=== PATIENT | male | born 1990 | race Caucasian/White ===

== ENCOUNTER → 2017-12-24 07:25 | Outpatient (CLI) | payer MEDICAID, SELFPAY ==
[2017-12-24 08:26] LABS: ALT 111 U/L (12-78); AST 45 U/L (15-37); Albumin 4.1 g/dL (3.4-5.0); Alkaline Phosphatase 70 U/L (46-116); BUN 18 mg/dL (7-18); Bilirubin, Total 0.5 mg/dL (0.2-1.0); CREATININE 0.85 mg/dL (0.70-1.30); Calcium 8.8 mg/dL (8.5-10.1); Chloride 104 mmol/L (98-107); Cholesterol 234 mg/dL (50-200); Glucose 97 mg/dL (70-100); HDL Cholesterol 44 mg/dL (40-60); LDL CHOLESTEROL 172 mg/dL (<100); Potassium 4.4 mmol/L (3.5-5.1); Sodium 139 mmol/L (136-145); Total Protein 7.2 g/dL (6.4-8.2); Triglyceride 126 mg/dL (30-150)
== END ==
PROVIDERS: PCP Nurse Practitioner Family; Visit Provider Nurse Practitioner Family
DX: I10 Essential (primary) hypertension (principal); E78.5 Hyperlipidemia, unspecified
CPT/HCPCS: 36415; 80053; 80061; 83721

== ENCOUNTER 2018-07-09 12:22 | Outpatient (CLI) | payer MEDICAID, SELFPAY ==
--- NOTE | 2018-07-09 11:39 | DI.RAD_ITS ---
SYMPTOM/DIAGNOSIS: PRODUCTIVE COUGH, FEVER, URI, J39.9 PA AND LATERAL CHEST: Comparison is made with 12/22/14. The cardiac and mediastinal contours have a normal appearance. The lungs are well inflated and clear. No infiltrate or effusion is seen. IMPRESSION: Negative chest xray.
== END 2018-07-09 12:42 ==
PROVIDERS: PCP Nurse Practitioner Family; Visit Provider Family Medicine
DX: R05 Cough (principal); R50.9 Fever, unspecified; J39.9 Disease of upper respiratory tract, unspecified
CPT/HCPCS: 71046

== ENCOUNTER 2018-09-08 21:45 | Observation (INO) | payer MEDICAID, SELFPAY ==
[2018-09-08 21:55] VITALS: BP 153/86; PULSE 89; RESP 16; TEMP 37; O2SAT 97
[2018-09-08 22:43] LABS: Abs Immature Grans 0.03 k/cumm (0.0-0.09); Absolute Basophil Count 0.02 k/cumm (0.0-0.2); Absolute Eosinophil Count 0.21 k/cumm (0.0-0.7); Absolute Lymphocyte Count 2.39 k/cumm (1.2-3.4); Absolute Monocyte Count 0.43 k/cumm (0.11-0.7); Absolute Neutrophil Count 2.94 k/cumm (1.2-6.7); Basophils % 0.3; Eosinophils % 3.5; HCT 41.6 % (40.0-50.0); HGB 14.4 g/dL (13.5-17.5); Immature Grans % 0.5; Lymphocytes % 39.7; Mean Corp. HGB Concentration 34.6 g/dL (32.0-36.0); Mean Corpuscular Hemoglobin 30.6 pg (27.0-33.0); Mean Corpuscular Volume 88.5 fL (80-95); Mean Platelet Volume 10.8 fL (8.0-11.0); Monocytes % 7.1; Neutrophils % 48.9; Platelet Count 171 x1000/uL (130-400); RBC Distribution Width 12.9 % (11.8-14.1); White Blood Cell Count 6.02 k/cumm (4.4-10.8)
[2018-09-08 22:43] LABS: Bilirubin Negative (Negative); Blood Negative (Negative); Clarity Clear; Glucose Negative (Negative); Ketones Negative (Negative); Leukocyte Esterase Negative (Negative); Nitrite Negative (Negative); Urobilinogen 0.2 EU/dL (Up TO 0.2); pH 6.5 (5-8)
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
[2018-09-08] MEDS: Lactated Ringers 1,000 ML 200 ML IV (22:50)
[2018-09-08] MEDS: Omnipaque 350 MG/ML 100 ML BTL IJ (23:00)
[2018-09-08 23:02] LABS: ALT 144 U/L (12-78); AST 54 U/L (15-37); Albumin 3.9 g/dL (3.4-5.0); Alkaline Phosphatase 66 U/L (46-116); BUN 16 mg/dL (7-18); Bilirubin, Total 0.2 mg/dL (0.2-1.0); CREATININE 0.91 mg/dL (0.70-1.30); Calcium 8.8 mg/dL (8.5-10.1); Chloride 102 mmol/L (98-107); ETHANOL BLOOD 49.6 mg/dL (<3); Glucose 134 mg/dL (70-100); Potassium 3.7 mmol/L (3.5-5.1); Sodium 137 mmol/L (136-145); Total Protein 7.2 g/dL (6.4-8.2)
--- NOTE | 2018-09-08 23:04 | DI.CT_ITS ---
SYMPTOM/DIAGNOSIS: RLQ PAIN, TENDERNESS ABDOMEN AND PELVIC CT: CT examination of the abdomen and pelvis was performed with a bolus infusion of 100 cc's of Omnipaque 350. Images obtained through the lung bases are unremarkable. Note is made of hepatic steatosis. The pancreas appears normal. Gallbladder and bile ducts are normal. Adrenals and kidneys are normal. No evidence of urinary tract calcification or obstruction. No significant abdominal wall hernia is seen. No abdominal or pelvic adenopathy. The appendix is normal. No evidence of diverticulitis or bowel obstruction. CONCLUSION: No evidence of acute intra-abdominal process. Note is made of hepatic steatosis.
[2018-09-08] MEDS: MORPHine 10 MG/ML VIAL 4 MG IVP (23:15)
--- NOTE | 2018-09-08 23:17 | DI.VRAD_ITS ---
EXAM: CT Abdomen and Pelvis With Contrast EXAM DATE/TIME: 09/08/2018 10:46 PM CLINICAL HISTORY: 28 years old, male; Abdominal pain; Localized; Right lower quadrant (rlq) TECHNIQUE: Imaging protocol: Axial computed tomography images of the abdomen and pelvis with intravenous contrast. Coronal and sagittal reformatted images were created and reviewed. Radiation optimization: All CT scans at this facility use at least one of these dose optimization techniques: automated exposure control; mA and/or kV adjustment per patient size (includes targeted exams where dose is matched to clinical indication); or iterative reconstruction. Contrast material: [id number]; Contrast volume: 100 ml; Contrast route: IV; COMPARISON: No relevant prior studies available. FINDINGS: ABDOMEN: Liver: No suspicious lesions. Gallbladder and bile ducts: No acute or concerning findings. Pancreas: Unremarkable. No ductal dilation. Spleen: No suspicious lesions. Adrenals: Unremarkalbe. No suspicious mass. Kidneys and ureters: Unremarkable. No hydro. No suspicious lesions. Stomach and bowel: Unremarkable. No obstruction or inflammatory changes. Appendix: Normal appendix. PELVIS: Bladder: Unremarkable as visualized. Reproductive: Unremarkable as visualized. ABDOMEN and PELVIS: Intraperitoneal space: No free air. No significant fluid collection. Bones/joints: No acute fracture. No dislocation. Soft tissues: Unremarkable. Vasculature: Unremarkable. No acute findings Lymph nodes: Unremarkable. IMPRESSION: No acute findings. Dictated and Authenticated by: Greg Andrade MD. Ordering:DONN Khan MD
[2018-09-08 23:30] VITALS: BP 143/87; PULSE 100; RESP 18; TEMP 37.4; O2SAT 96
[2018-09-09] VITALS (17 sets, daily range): BP systolic 123–170; BP diastolic 51–105; PULSE 73–96; RESP 8–22; TEMP 36.5–37.4; O2SAT 95–98
[2018-09-09] MEDS: MORPHine 2 MG/ML SYR 4 MG IVP (01:51)
[2018-09-09] MEDS: Normal Saline Flush 10 ML SYR IVP (01:52)
[2018-09-09] MEDS: Lactated Ringers 1,000 ML 200 ML IV ×2 (03:57→08:35)
[2018-09-09 07:17] LABS: Abs Immature Grans 0.02 k/cumm (0.0-0.09); Absolute Basophil Count 0.04 k/cumm (0.0-0.2); Absolute Eosinophil Count 0.19 k/cumm (0.0-0.7); Absolute Lymphocyte Count 2.06 k/cumm (1.2-3.4); Absolute Monocyte Count 0.46 k/cumm (0.11-0.7); Absolute Neutrophil Count 2.85 k/cumm (1.2-6.7); Basophils % 0.7; Eosinophils % 3.4; HCT 42.3 % (40.0-50.0); HGB 14.1 g/dL (13.5-17.5); Immature Grans % 0.4; Lymphocytes % 36.7; Mean Corp. HGB Concentration 33.3 g/dL (32.0-36.0); Mean Corpuscular Hemoglobin 29.7 pg (27.0-33.0); Mean Corpuscular Volume 89.2 fL (80-95); Monocytes % 8.2; Neutrophils % 50.6; Platelet Count 159 x1000/uL (130-400); RBC 4.74 m/cumm (4.50-6.00); White Blood Cell Count 5.62 k/cumm (4.4-10.8)
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
[2018-09-09] MEDS: ACETAMINOPHEN 1,000 MG/100 ML BTL 400 MG IVPB (10:14)
[2018-09-09] MEDS: cefTRIAXone 2 GM/50 ML BAG IVPB (10:47)
[2018-09-09] MEDS: Bupivacaine 0.25% Pres-Free 30 ML VIAL (11:27)
--- NOTE | 2018-09-09 11:57 | APP_PTH ---
PATIENT: Conrado Corrigan II LOC: U#:[id number] AGE/SX: 28/M ROOM: RE09/09/[address]: Porsha Titsu : 1990 BED: A DIS: 09/10/2018 SPEC #: [id number] RECD: 09/09/18 12:54 STATUS: SOUKarla REQ #: [id number] HELEN: 09/09/18 11:[address]: Porsha Titus DEPT: Surgical Specimen RECD BY: Chrystal Sun ENTERED: 09/09/18 12:54 SP TYPE: Appendix OTHR DR: Kimberly Stein APRN Tissues: 1 - APPENDIX NOT INCIDENTAL Procedures: GROSS AND MICRO LEVEL 3 Comments: [id number]
--- NOTE | 2018-09-09 12:35 | W.PM.OP ---
Date of service: 09/09/18 Time of Service: 12:35 Operative Note DATE OF PROCEDURE: 09/09/18 PRE-OP DIAGNOSIS: RLQ pain POST-OP DIAGNOSIS: other (early appendicitis) PROCEDURE: abril bales SURGEON: Porsha Titus ELECTRIC ARC FURNACE OPERATOR: Porsha Arroyo ANESTHESIA: GETA ESTIMATED BLOOD LOSS: 5 PATHOLOGY: other COMPLICATIONS: None Indications: RLQ pain Procedure Description: ANESTHESIA: General. ESTIMATED BLOOD LOSS: 10 mL. COMPLICATIONS: The patient tolerated the procedure well without complications. INDICATIONS: The patient has signs and symptoms compatible with acute appendicitis and is brought to the OR for laparoscopic appendectomy, possible open procedure. Informed consent is obtained for the procedural (explained in simple layman's terms that the pt and/or family could understand) explaining risks vs benefits and alternatives to the procedure and consequences if we do not do the procedure. Risks include but are not limited to:bleeding,infections, pneumonia, blood clots/DVT/PE, anesthesia(aspiration, damage to teeth/airway/AL/CVA//prolonged mechanical ventilation/PTX/IV infections), damage to bowel, bladder,blood vessels, ureters. Damage to solid organs requiring removal. Infertility. Leakage from anastomosis requiring colostomy. Wound infections requirng further surgery. Scarring and disfigurement. Subsequent bowel obstructions from scar tissue. Possible open procedure if minimaly invsive procedure is being attempted. Abscess and stump appendicitis as well as others. DESCRIPTION OF PROCEDURE: The patient was brought to the operating room suite and placed in supine position. Anesthesia was administered per the Department of Anesthesia. A Gutierrez catheter and OG tube are placed. The patient was prepped and draped in the usual sterile fashion using ChloraPrep scrub solution. Pause for the cause was done. 30 mL of 1% buffered was used for local anesthetization. A stab incision was made in the umbilicus and the Veress was inserted. Drop test was positive and insufflation was begun. When 15 mm of pressure was noted on the monitor, the Veress was removed, a #5 port inserted. Camera inserted through the port shows no damage to underlying structures. GB appears nl. Bowel, liver and stomach that are visualized are normal in appearance. Pelvic organs are not visualized. The appendix is mildly inflamed at the tip. There is no signs of rupture. There is no purulent drainage in the pelvis. It is not adhered to any adjacent structures. A 12 mm port was then placed in the suprapubic position under direct visualization following creation of a local field block as well as a second 5 mm port in the LLQ. The appendix is elevated and a rent dissected into the mesentery. The base of the appendix is healthy and will hold robb. A Endo-QUINCY stapler is placed across the base of the appendix and fired and 2nd stapler placed across the mesentery and fired. The appendix is placed in a bag and brought out. There is no bleeding or enteric leakage from the staple lines. The pt does not require a drain. The abdomen was copiously irrigated with a liter of saline. All saline is evacuated. The scope and ports are removed. Pneumoperitoneum is evacuated. The fascia under the 12 mm port is closed with 0 Vicryl. There was no bleeding from the port sites as when they removed and the pneumoperitoneum evacuated. The wounds were copiously irrigated and closed in 2 layers with 4-0 Monocryl. Sterile tape and sterile dressings are applied. The patient tolerated the procedure without complication, transferred to the recovery room in stable condition. Family was apprised of patient condition. The patient can be discharged home later today.
[2018-09-09] MEDS: HYDROcodone 5/Acetaminophen 325 TAB PO (13:44)
--- NOTE | 2018-09-09 13:58 | NUR.NOTE ---
patient arrived from PACU via stretcher, stand pivot to bed, 2 iv accesses, c/o abd burning near incision site, cool pack applied, vitals are stable, family with him.
[2018-09-09] MEDS: metroNIDAZOLE 500 MG/100 ML BAG 100 MG IVPB (15:28)
[2018-09-09] MEDS: traMADol 50 MG TAB PO ×2 (16:45→21:42)
[2018-09-09] MEDS: Acetaminophen 500 MG TAB 1000 MG PO (16:45)
[2018-09-09] MEDS: Ketorolac 30 MG/ML VIAL IVP (18:25)
[2018-09-09] MEDS: Lisinopril 20 MG TAB 40 MG PO (19:47)
--- NOTE | 2018-09-09 21:13 | PGE_ITS ---
Date of Service Date of service: 09/09/18 Time of Service: 21:11 Assessment and Plan (1) Appendicitis: Current visit: Yes Status: Acute s/p lap appy doing well RN's don't think pt is going to be able to gome home tonight Plan d/c in am try protonix for GERD pt states he did stop smoking 5m ago. pain control- try to use non narcotics. pt seems to have unpleasent reactions to narcotic pain meds. c/o dizziness after received ultram. takes BP meds at night plan on dc home in am Subjective Interval history since last seen: Late entry from 15:30 Pt c/o some mild indigestion. Here does have a hx of severe GERD, but doesn't take any meds for this. He has some burning pain at the incision sites. Has not urinated since Sx. Had some cl liq and now feels mildly bloated. Pt has not been up walking. pt had a reaction to morphine- spasming of neck muscles and does not want any more of this. Pt can go home this evening if he is feeling good No headaches. no eye pain No CP or SOB. no productive cough. no leg pain or swelling. Will have pt medicated for pain. Will get him up adn moving and see how he feels. 18:30 d/w RN pt care. pt BP slitghtly up. pt had tylenol and ultram for pain. Now feels dizzy. Pt did not receive BP med yest. nl takes BP med at night pt would like reg food to eat- no n/v. RN doens't think he is ready for d/c. Plan d/c home in am Exam Const General: cooperative, comfortable and no acute distress Eyes Other: no eye pain or redness no dental abnormalities Resp Other: L: CTA b/l GI Other: dressing C/D/I. BS hypoactive Skin Other: intact Objective Objective Clinical Data: Abnormal lab results 09/08/18 Range/Units 22:15 Glucose 134 H (70-100) mg/dL AST 54 H (15-37) U/L ALT 144 H (12-78) U/L Vital Signs Temperature 36.9 C 09/09/18 20:00 Temperature Source Tympanic 09/09/18 17:30 Pulse 96 H 09/09/18 20:00 Pulse Rhythm Regular 05/16/19 20:00 Respiratory Rate 18 09/09/18 20:00 Respiratory Effort Non-Labored 09/09/18 20:00 Respiratory Depth Normal 09/09/18 20:00 Respiratory Pattern Normal 09/09/18 20:00 Blood Pressure 146/84 H 09/09/18 20:00 Pulse Oximetry 98 09/09/18 20:00 Respiratory End-tidal CO2 39 09/09/18 13:08 Oxygen Delivery Method Room Air 09/09/18 20:00 Oxygen Flow Rate 0 09/09/18 20:00 Pain Level 8 09/09/18 16:45 Comment 09/09/18 17:30 Intake & Output 09/08/18 09/09/18 09/09/18 23:59 11:59 23:59 Intake Total 2966. 950 / 2966.667 Output Total 275 / 275 Balance 2691. 675 / 269. Weight 113.398 kg 113.398 kg Intake: IV 272. 710 272.667 Oral 240 / 240 Output: Urine 275 / 275 Other: Urine Color Pale Yellow Urine Appearance Clear Clear Urine Odor None None Comment Pt voiding ad vamsi in toilet. Denies sx. Urine not seen by nursing at this time. Emesis Description None Voiding Methods Toilet Toilet Laboratory Results WBC 5.62 k/cumm (4.4-10.8) 09/09/18 06:47 RBC 4.74 m/cumm (4.50-6.00) 09/09/18 06:47 Hgb 14.1 g/dL (13.5-17.5) 09/09/18 06:47 Hct 42.3 % (40.0-50.0) 09/09/18 06:47 MCV 89.2 fL (80-95) 09/09/18 06:47 MCH 29.7 pg (27.0-33.0) 09/09/18 06:47 MCHC 33.3 g/dL (32.0-36.0) 09/09/18 06:47 RDW 13.0 % (11.8-14.1) 09/09/18 06:47 Plt Count 159 x1000/uL (130-400) 09/09/18 06:47 MPV 11.0 fL (8.0-11.0) 09/09/18 06:47 Immature Gran % 0.4 09/09/18 06:47 Neutrophils % 50.6 09/09/18 06:47 Lymphocytes % 36.7 09/09/18 06:47 Monocytes % 8.2 09/09/18 06:47 Eosinophils % 3.4 09/09/18 06:47 Basophils % 0.7 09/09/18 06:47 Absolute Neutrophils 2.85 k/cumm (1.2-6.7) 09/09/18 06:47 Absolute Lymphocytes 2.06 k/cumm (1.2-3.4) 09/09/18 06:47 Absolute Monocytes 0.46 k/cumm (0.11-0.7) 09/09/18 06:47 Absolute Eosinophils 0.19 k/cumm (0.0-0.7) 09/09/18 06:47 Absolute Basophils 0.04 k/cumm (0.0-0.2) 09/09/18 06:47 Sodium 137 mmol/L (136-145) 09/08/18 22:15 Potassium 3.7 mmol/L (3.5-5.1) 09/08/18 22:15 Chloride 102 mmol/L (98-107) 09/08/18 22:15 Carbon Dioxide 24.0 mmol/L (21.0-32.0) 09/08/18 22:15 Anion Gap 11.0 mmol/L (3-11) 09/08/18 22:15 BUN 16 mg/dL (7-18) 09/08/18 22:15 Creatinine 0.91 mg/dL (0.70-1.30) 09/08/18 22:15 Estimated GFR/1.73 m2 >= 60.00 (mL/min/1.73m2) 09/08/18 22:15 Glucose 134 mg/dL (70-100) H 09/08/18 22:15 Calcium 8.8 mg/dL (8.5-10.1) 09/08/18 22:15 Total Bilirubin 0.2 mg/dL (0.2-1.0) 09/08/18 22:15 AST 54 U/L (15-37) H 09/08/18 22:15 ALT 144 U/L (12-78) H 09/08/18 22:15 Alkaline Phosphatase 66 U/L (46-116) 09/08/18 22:15 Total Protein 7.2 g/dL (6.4-8.2) 09/08/18 22:15 Albumin 3.9 g/dL (3.4-5.0) 09/08/18 22:15 Urine Color Yellow (Yellow) 09/08/18 22:30 Urine Clarity Clear 09/08/18 22:30 Urine pH 6.5 (5-8) 09/08/18 22:30 Ur Specific [place] 1.010 (1.005-1.025) 09/08/18 22:30 Urine Protein Negative mg/dL (Negative) 09/08/18 22:30 Urine Ketones Negative mg/dL (Negative) 09/08/18 22:30 Urine Blood Negative (Negative) 09/08/18 22:30 Urine Nitrite Negative (Negative) 09/08/18 22:30 Urine Bilirubin Negative (Negative) 09/08/18 22:30 Urine Urobilinogen 0.2 EU/dL (Up TO 0.2) 09/08/18 22:30 Ur Leukocyte Esterase Negative (Negative) 09/08/18 22:30 Urine Glucose Negative mg/dL (Negative) 09/08/18 22: Ethyl Alcohol 49.6 mg/dL (<3) 09/08/18:15
[2018-09-09] MEDS: Pantoprazole 40 MG TABCR PO (21:41)
[2018-09-09] MEDS: Calcium Carbonate *TUMS* 500 MG CHEW PO (21:42)
[2018-09-09] MEDS: Lactated Ringers 1,000 ML 100 ML IV (23:29)
[2018-09-10] MEDS: Ketorolac 30 MG/ML VIAL IVP ×2 (02:22→08:54)
[2018-09-10] MEDS: traMADol 50 MG TAB PO (02:23)
[2018-09-10 02:28] VITALS: PULSE 78; RESP 18; O2SAT 98
[2018-09-10 04:32] VITALS: BP 133/77; PULSE 78; RESP 18; TEMP 36.8; O2SAT 98
[2018-09-10 07:45] VITALS: BP 133/77; PULSE 67; RESP 16; TEMP 36.3; O2SAT 98
[2018-09-10 07:55] VITALS: O2SAT 95
--- NOTE | 2018-09-10 08:02 | PGE_ITS ---
Date of Service Date of service: 09/10/18 Time of Service: 08:01 Assessment and Plan (1) Appendicitis: Current visit: No Status: Acute s/p lap appy plan d/c home see d/c ntoes for instructons Subjective Patient reports: tolerating liquids well, tolerating a regular diet, voiding w/o difficulty and flatus; denies nausea, vomiting, shortness of breath and fever Interval history since last seen: Pt is doing well. no headaches. No CP or SOB. no productive cough. no dysuria. no leg pain or swelling. Pain at incision sites. pt is tolerating reg diet. mild pain at incision sites.up walking. no more dizziness. Exam Narrative Exam Narrative: HEENT: no eye pain or redness. no juandice mild sore throat dentition is intact L: CTA b/l Adbom: appropriate postOp pain incision CDI H: R/R/R LE; no redness/pain/swelling Objective Objective Clinical Data: Vital Signs Temperature 36.8 C 09/10/18 04:32 Temperature Source Tympanic 09/09/18 17:30 Pulse 78 09/10/18 04:32 Pulse Rhythm Regular 09/09/18 20:00 Respiratory Rate 18 09/10/18 04:32 Respiratory Effort Non-Labored 09/09/18 20:00 Respiratory Depth Normal 09/09/18 20:00 Respiratory Pattern Normal 09/09/18 20:00 Blood Pressure 133/77 09/10/18 04:32 Pulse Oximetry 98 09/10/18 04:32 Respiratory End-tidal CO2 39 09/09/18 13:08 Oxygen Delivery Method Room Air 09/10/18 04:32 Oxygen Flow Rate 0 09/10/18 04:32 Pain Level 8 09/09/18 16:45 Comment 09/09/18 23:52 Intake & Output 09/09/18 09/09/18 09/10/18 11:59 23:59 11:59 Intake Total 3215. 1200 / 3216. 400 / 400 Output Total 275 / 275 Balance 2941. 925 / 2941.7 400 / 400 Weight 113.398 kg Intake: IV 6. 960 / 2976.7 Oral 240 / 240 400 / 400 Output: Urine 275 / 275 Other: Urine Color Pale Yellow Urine Appearance Clear Clear Urine Odor None None Comment Pt voiding ad vamsi in toilet. Denies sx. Urine not seen by nursing at this time. Emesis Description None Voiding Methods Toilet Toilet Laboratory Results WBC 5.62 k/cumm (4.4-10.8) 09/09/18 06:47 RBC 4.74 m/cumm (4.50-6.00) 09/09/18 06:47 Hgb 14.1 g/dL (13.5-17.5) 09/09/18 06:47 Hct 42.3 % (40.0-50.0) 09/09/18 06:47 MCV 89.2 fL (80-95) 09/09/18 06:47 MCH 29.7 pg (27.0-33.0) 09/09/18 06:47 MCHC 33.3 g/dL (32.0-36.0) 09/09/18 06:47 RDW 13.0 % (11.8-14.1) 09/09/18 06:47 Plt Count 159 x1000/uL (130-400) 09/09/18 06:47 MPV 11.0 fL (8.0-11.0) 09/09/18 06:47 Immature Gran % 0.4 09/09/18 06:47 Neutrophils % 50.6 09/09/18 06:47 Lymphocytes % 36.7 09/09/18 06:47 Monocytes % 8.2 09/09/18 06:47 Eosinophils % 3.4 09/09/18 06:47 Basophils % 0.7 09/09/18 06:47 Absolute Neutrophils 2.85 k/cumm (1.2-6.7) 09/09/18 06:47 Absolute Lymphocytes 2.06 k/cumm (1.2-3.4) 09/09/18 06:47 Absolute Monocytes 0.46 k/cumm (0.11-0.7) 09/09/18 06:47 Absolute Eosinophils 0.19 k/cumm (0.0-0.7) 09/09/18 06:47 Absolute Basophils 0.04 k/cumm (0.0-0.2) 09/09/18 06:47 Sodium 137 mmol/L (136-145) 09/08/18 22:15 Potassium 3.7 mmol/L (3.5-5.1) 09/08/18 22:15 Chloride 102 mmol/L (98-107) 09/08/18 22:15 Carbon Dioxide 24.0 mmol/L (21.0-32.0) 09/08/18 22:15 Anion Gap 11.0 mmol/L (3-11) 09/08/18 22:15 BUN 16 mg/dL (7-18) 09/08/18 22:15 Creatinine 0.91 mg/dL (0.70-1.30) 09/08/18 22:15 Estimated GFR/1.73 m2 >= 60.00 (mL/min/1.73m2) 09/08/18 22:15 Glucose 134 mg/dL (70-100) H 09/08/18 22:15 Calcium 8.8 mg/dL (8.5-10.1) 09/08/18 22:15 Total Bilirubin 0.2 mg/dL (0.2-1.0) 09/08/18 22:15 AST 54 U/L (15-37) H 09/08/18 22:15 ALT 144 U/L (12-78) H 09/08/18 22:15 Alkaline Phosphatase 66 U/L (46-116) 09/08/18 22:15 Total Protein 7.2 g/dL (6.4-8.2) 09/08/18 22:15 Albumin 3.9 g/dL (3.4-5.0) 09/08/18 22:15 Urine Color Yellow (Yellow) 09/08/18 22:30 Urine Clarity Clear 09/08/18 22:30 Urine pH 6.5 (5-8) 09/08/18 22:30 Ur Specific [place] 1.010 (1.005-1.025) 09/08/18 22:30 Urine Protein Negative mg/dL (Negative) 09/08/18 22:30 Urine Ketones Negative mg/dL (Negative) 09/08/18 22:30 Urine Blood Negative (Negative) 09/08/18 22:30 Urine Nitrite Negative (Negative) 09/08/18 22:30 Urine Bilirubin Negative (Negative) 09/08/18 22:30 Urine Urobilinogen 0.2 EU/dL (Up TO 0.2) 09/08/18 22:30 Ur Leukocyte Esterase Negative (Negative) 09/08/18 22:30 Urine Glucose Negative mg/dL (Negative) 09/08/18 22:30 Ethyl Alcohol 49.6 mg/dL (<3) 09/08/18 22:15
[2018-09-10] MEDS: Milk of Magnesia 30 ML CUP PO (10:16)
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
== END 2018-09-10 12:10 | disposition home or self-care (01) ==
LOC: ER 09-09 00:42 → MS 09-09 01:09
PROVIDERS: Admitting Provider Surgery; Emergency Provider Emergency Medicine; PCP Nurse Practitioner Family; Visit Provider Surgery
PROC: 0DTJ4ZZ Resection of Appendix, Percutaneous Endoscopic Approach (ICD-10-PCS; CPT 44970; principal; 2018-09-09 11:00)
DX: K35.890 Other acute appendicitis without perforation or gangrene (principal); K38.1 Appendicular concretions; F17.210 Nicotine dependence, cigarettes, uncomplicated; Z72.89 Other problems related to lifestyle; E78.5 Hyperlipidemia, unspecified; I10 Essential (primary) hypertension; K21.9 Gastro-esophageal reflux disease without esophagitis
CPT/HCPCS: 44970; 36415; 80053; 93005; 96361; 96374; 99222; 99238; 99285; NC; 74177; 80320; 81003; 85025; 88304; 93010; G0378; J0131; J1100; J1885; J2250; J2270; J2405; J3490

== ENCOUNTER 2018-11-12 12:04 | Emergency (ER) | payer MEDICAID, SELFPAY ==
[2018-11-12] VITALS (46 sets, daily range): BP systolic 122–171; BP diastolic 68–91; PULSE 72–116; RESP 9–28; TEMP 36.8; O2SAT 93–98
[2018-11-12 12:36] LABS: Abs Immature Grans 0.03 k/cumm (0.0-0.09); Absolute Basophil Count 0.03 k/cumm (0.0-0.2); Absolute Eosinophil Count 0.17 k/cumm (0.0-0.7); Absolute Lymphocyte Count 1.77 k/cumm (1.2-3.4); Absolute Monocyte Count 0.36 k/cumm (0.11-0.7); Absolute Neutrophil Count 3.84 k/cumm (1.2-6.7); Basophils % 0.5; Eosinophils % 2.7; HCT 45.1 % (40.0-50.0); HGB 15.4 g/dL (13.5-17.5); Immature Grans % 0.5; Lymphocytes % 28.5; Mean Corp. HGB Concentration 34.1 g/dL (32.0-36.0); Mean Corpuscular Hemoglobin 30.2 pg (27.0-33.0); Mean Corpuscular Volume 88.4 fL (80-95); Mean Platelet Volume 10.9 fL (8.0-11.0); Monocytes % 5.8; Platelet Count 179 x1000/uL (130-400); RBC Distribution Width 13.2 % (11.8-14.1)
--- NOTE | 2018-11-12 12:53 | ED.GENADUL_ITS ---
Discharge Plan Disposition Patient Disposition: HOME Condition: Improving Discharge Details Chief Complaint: Chest Pain Clinical Impression: Chest wall pain Primary Care Provider: Kimberly Stein ED Provider: Kathie Moseley Home Meds and New Rx's Prescriptions: Continued pantoprazole [Protonix] 40 mg tablet,delayed release (DR/EC) 40 mg PO DAILY Qty: 90 RF: 1 hydrochlorothiazide 12.5 mg tablet 12.5 mg PO DAILY AM Qty: 90 RF: 3 fluticasone propionate 50 mcg/actuation spray,suspension 1 - 2 spray NS DAILY PRN (Reason: nasal congestion) Qty: 3 RF: 3 acetaminophen 500 MG tablet 500 mg PO PRN RF: 0 lisinopril 40 MG tablet 40 mg PO DAILY Qty: 90 RF: 1 Discharge Instructions Instructions: Chest Wall Pain (ED) Additional Instructions: Alternate Tylenol and Motrin as needed and directed for pain. Alternate ice and heat to the affected area several times daily for 20 minutes at a time. Follow-up with your primary care doctor next week for reevaluation. Return to the emergency department if you develop any worsening or new concerning symptoms. Discharge Data Discharge Date/Time-TO BE ENTERED AT DEPARTURE: 11/12/18 16:07 Discharge Physician: Kathie Moseley Medical Decision Making 28-year-old male with history of hypertension, daily alcohol abuse, hyperlipidemia who presents with left-sided chest pain since yesterday. 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 He has tenderness to palpation left anterior lateral chest. Lungs clear. No DVT/PE risk factors. Blood pressure hypertensive. Heart rate 100. Afebrile. Suspect most likely musculoskeletal but considering patient's history, daily alcohol use, will do cardiac work-up, lipase. Will give a dose of Toradol and reassess. 1400 -- labs and imaging reviewed. Troponin negative. Chronically elevated liver enzymes which is increased compared to previous. Chest x-ray negative. Patient feels much better. Denies any pain at this time. Pt is agreeable to stay for second troponin. 1545 -- second troponin negative. Repeat EKG unchanged. Patient denies any pain at this time and is requesting to go home. He is advised to follow-up with his primary care doctor for reevaluation and to return here anytime if worse. He was advised of the dangers of daily alcohol abuse and how to stop drinking safely under the direction of the detox center or physician. Medical Records Medical records reviewed: Yes I reviewed the patient's medical records. Imaging Data Radiologic Study: Radiologist's impression: PA AND LATERAL CHEST: Comparison is made with 07/09/18. The heart is normal in size. The lungs are clear. The mediastinal structures and pleura appear intact. CONCLUSION: Normal chest. Lab Data Lab results reviewed: Yes I reviewed the patient's lab results. Laboratory Tests Range/Units 11/12/18 11/12/18 11/12/18 12:15 12:15 14:58 WBC (4.4-10.8) k/cumm 6.20 RBC (4.50-6.00) m/cumm 5.10 Hgb (13.5-17.5) g/dL 15.4 Hct (40.0-50.0) % 45.1 MCV (80-95) fL 88.4 MCH (27.0-33.0) pg 30.2 MCHC (32.0-36.0) g/dL 34.1 RDW (11.8-14.1) % 13.2 Plt Count (130-400) x1000/uL 179 MPV (8.0-11.0) fL 10.9 Immature Gran % 0.5 Neutrophils % 62.0 Lymphocytes % 28.5 Monocytes % 5.8 Eosinophils % 2.7 Basophils % 0.5 Absolute Neutrophils (1.2-6.7) k/cumm 3.84 Absolute Lymphocytes (1.2-3.4) k/cumm 1.77 Absolute Monocytes (0.11-0.7) k/cumm 0.36 Absolute Eosinophils (0.0-0.7) k/cumm 0.17 Absolute Basophils (0.0-0.2) k/cumm 0.03 D-Dimer (<500) ng/mlFEU Sodium (136-145) mmol/L 138 Potassium (3.5-5.1) mmol/L 3.8 Chloride (98-107) mmol/L 101 Carbon Dioxide (21.0-32.0) mmol/L 25.7 Anion Gap (3-11) mmol/L 11.3 H BUN (7-18) mg/dL 15 Creatinine (0.70-1.30) mg/dL 0.97 Estimated GFR/1.73 m2 (mL/min/1.73m2) >= 60.00 Glucose (70-100) mg/dL 154 H Calcium (8.5-10.1) mg/dL 9.2 Magnesium (1.8-2.4) mg/dL 2.1 Total Bilirubin (0.2-1.0) mg/dL 0.4 AST (15-37) U/L 70 H ALT (12-78) U/L 206 H Alkaline Phosphatase (46-116) U/L 74 Troponin I (0.00-0.06) ng/mL < 0.05 < 0.05 Total Protein (6.4-8.2) g/dL 7.9 Albumin (3.4-5.0) g/dL 4.3 Lipase (73-393) U/L 136 Range/Units 11/12/18 14:58 WBC (4.4-10.8) k/cumm RBC (4.50-6.00) m/cumm Hgb (13.5-17.5) g/dL Hct (40.0-50.0) % MCV (80-95) fL MCH (27.0-33.0) pg MCHC (32.0-36.0) g/dL RDW (11.8-14.1) % Plt Count (130-400) x1000/uL MPV (8.0-11.0) fL Immature Gran % Neutrophils % Lymphocytes % Monocytes % Eosinophils % Basophils % Absolute Neutrophils (1.2-6.7) k/cumm Absolute Lymphocytes (1.2-3.4) k/cumm Absolute Monocytes (0.11-0.7) k/cumm Absolute Eosinophils (0.0-0.7) k/cumm Absolute Basophils (0.0-0.2) k/cumm D-Dimer (<500) ng/mlFEU 169 Sodium (136-145) mmol/L Potassium (3.5-5.1) mmol/L Chloride (98-107) mmol/L Carbon Dioxide (21.0-32.0) mmol/L Anion Gap (3-11) mmol/L BUN (7-18) mg/dL Creatinine (0.70-1.30) mg/dL Estimated GFR/1.73 m2 (mL/min/1.73m2) Glucose (70-100) mg/dL Calcium (8.5-10.1) mg/dL Magnesium (1.8-2.4) mg/dL Total Bilirubin (0.2-1.0) mg/dL AST (15-37) U/L ALT (12-78) U/L Alkaline Phosphatase (46-116) U/L Troponin I (0.00-0.06) ng/mL Total Protein (6.4-8.2) g/dL Albumin (3.4-5.0) g/dL Lipase (73-393) U/L ECG Data Attestation: I personally reviewed and interpreted this ECG (s) as follows: Interpretation: #1 --Rate of 101, sinus, no acute ST elevation or depression. QTc 412. QRS 102. #2 --Rate of 84, sinus, no acute ST elevation or depression. QTc 397. QRS 100. HPI General Mode of arrival: ambulatory . Date/Time Provider Initiated Documentation: 11/12/18 12:17 . Limitations to Documentation: no limitations . Information obtained by: patient . HPI Narrative: Pt is a 28yo M who presents to the ED w/ a c/o chest pain since yesterday afternoon. Patient describes the pain as pressure-like in the left side of his chest with radiation to his left shoulder. He states the pain was worse today while at work. States the pain is worse with movement and deep breath. Denies any relief with Tums. 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 Patient states he drinks 3-6 beers daily for several years and states he drank 4 beers last night. He admits to nausea but denies any vomiting. Denies any fever, cough, recent travel, recent surgery, dizziness or shortness of breath. Related Data Home Medications Medication Instructions Recorded Confirmed acetaminophen 500 mg PO PRN 05/08/16 11/12/18 lisinopril 40 mg PO DAILY #90 tab-cap 12/16/17 11/12/18 fluticasone propionate 50 1 - 2 spray NS DAILY PRN #3 unit 08/05/18 11/12/18 mcg/actuation nasal spray,suspension hydrochlorothiazide 12.5 mg tablet 12.5 mg PO DAILY AM #90 tab-cap 11/04/18 11/12/18 pantoprazole 40 mg tablet,delayed 40 mg PO DAILY #90 tab-cap 11/04/18 11/12/18 release Previous Rx's Medication Instructions Recorded lisinopril 40 mg PO DAILY #90 tab-cap 12/16/17 fluticasone propionate 50 1 - 2 spray NS DAILY PRN #3 unit 08/05/18 mcg/actuation nasal spray,suspension hydrochlorothiazide 12.5 mg tablet 12.5 mg PO DAILY AM #90 tab-cap 11/04/18 pantoprazole 40 mg tablet,delayed 40 mg PO DAILY #90 tab-cap 11/04/18 release Allergies Allergy/AdvReac Type Severity Reaction Status Date / Time Opioids - Morphine Analogues AdvReac Mild tightness Verified 11/12/18 12:10 in neck muscles Sulfa (Sulfonamide AdvReac Unknown Verified 11/12/18 12:10 Antibiotics) General Stated Complaint: Chest Pain NICHOLAS: 3 Review of Systems Review of Systems All systems reviewed & are unremarkable except as noted in HPI and below Constitutional Reports as per HPI, Denies chills and Denies fever(s) Eyes Denies blurry vision ENT Denies dizziness, Denies sore throat and Denies throat swelling Cardiovascular Reports chest pain and Denies dyspnea Respiratory Denies cough and Denies dyspnea Gastrointestinal Denies abdominal pain, Denies diarrhea and Denies vomiting Genitourinary Denies hematuria and Denies dysuria Musculoskeletal Denies back pain and Denies numbness Integumentary/Breasts Denies lesions and Denies rash Neurologic Denies dizziness, Denies focal weakness and Denies numbness Allergic/Immunologic Denies throat swelling [facility] Medical History Anxiety (Chronic) Appendicitis (Resolved) Chronic rhinosinusitis (Chronic) Crushing injury of left thumb (Inactive 01/24/11) Dysfunction of both eustachian tubes (Acute 12/22/16) Essential hypertension (Chronic 05/08/16) GERD (gastroesophageal reflux disease) (Chronic) Heavy alcohol consumption (Acute) Hyperlipidemia (Acute 07/30/16) JAIRO (obstructive sleep apnea) (Chronic) Tobacco use disorder (Inactive) Surgical History Adenoidectomy (Inactive 01/03/08) Bilateral Myringotomy w/Insertion of Viincius Tubes (Inactive 01/03/08) fx distal phalanx left thumb (Inactive 01/24/11) Family History Mother Essential hypertension Father Substance abuse Grandfather Myocardial infarction Neoplasm Grandmother Heart disease Maternal Aunt Mental disorder Maternal Uncle Myocardial infarction Social History Smoking/Tobacco Use Status: Former Tobacco Use Alcohol Intake: current Alcohol Intake frequency: 0-2 drinks per day Drug use: Rarely Substance use type: marijuana Caregiver/Support person: No Household members: significant other Number of Children: 2 Pets and animals: Yes Pets and animals: dog(s) Sexually active: Yes Current gender identity: male What type of physical activity do you participate in: none Seatbelt use: never Helmet use: Yes Drive intox 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 Water heater temp set <120 deg: Yes Working smoke detector in home: Yes Fire extinguisher in home: Yes Carbon monox detector in home: Yes Firearms in home: Yes Firearms unloaded and locked: Yes Do you feel safe at home: Yes Do you feel safe in your relationship?: Yes Exam Const General: cooperative, healthy appearing and no acute distress HENMT Head: normal to inspection Face and sinus: normal facial exam Eyes General: appearance normal, both eyes and all related structures Pupils: PERRL EOM: EOM intact bilaterally Neck Neck: normal visual inspection and No submandibular swelling Lymphatic: no lymphadenopathy noted Chest Chest: normal inspection of the chest and no tenderness Chest/axillae images: 1. Tenderness to palpation L lateral chest. No rash, erythema, edema, ecchymoses. Resp Effort & Inspection: normal respiratory effort and able to speak in complete sentences Auscultation: clear to auscultation bilaterally Cardio Rate: regular rate Rhythm: regular rhythm GI Inspection: normal to inspection Palpation: soft, not firm, not rigid and nontender Auscultation: normal bowel sounds Male General Exam: Yes normal external exam Back/Spine/Pelvis Thoracic/Lumbar Spine: thoracic and lumbar spine normal to inspection Pelvis: no pain with anterior-posterior compression Skin General skin exam: no rashes or lesions noted Neuro General: alert, awake and oriented x3 Cognition: normal cognition Speech: speech normal Motor: muscle tone normal throughout Sensory Exam: no sensory deficits noted Extrem General: normal to inspection, full ROM, normal capillary refill, no calf tenderness bilaterally and no edema Other: Bilateral radial pulses intact. Full range of motion of left upper extremity without pain, trauma, deformity, infection or rash. Psych Appearance: grossly normal Mental Status: mental status grossly normal Speech and Movement: speech and movement normal Affect: normal affect Course Vital Signs Temperature 98.2 F 11/12/18 12:07 Pulse 104 H 11/12/18 12:07 Respiratory Rate 17 11/12/18 12:07 Blood Pressure 171/91 H 11/12/18 12:07 Pulse Oximetry 96 11/12/18 12:07 Temperature 98.2 F 11/12/18 12:07 Temperature Source Temporal Artery Scan 11/12/18 12:07 Pulse 104 H 11/12/18 12:07 Respiratory Rate 17 11/12/18 12:26 Respiratory Effort Non-Labored 11/12/18 12:26 Respiratory Depth Normal 11/12/18 12:26 Respiratory Pattern Normal 11/12/18 12:26 Blood Pressure 171/91 H 11/12/18 12:07 Blood Pressure Position Supine 11/12/18 12:07 Pulse Oximetry 96 11/12/18 12:07 Oxygen Delivery Method Room Air 11/12/18 12:07 Oxygen Flow Rate 0 11/12/18 12:07 Pain Level 2 11/12/18 12:26 Lab/Test Results Lab/Test Results: Laboratory Tests Range/Units 11/12/18 12:15 WBC (4.4-10.8) k/cumm 6.20 RBC (4.50-6.00) m/cumm 5.10 Hgb (13.5-17.5) g/dL 15.4 Hct (40.0-50.0) % 45.1 MCV (80-95) fL 88.4 MCH (27.0-33.0) pg 30.2 MCHC (32.0-36.0) g/dL 34.1 RDW (11.8-14.1) % 13.2 Plt Count (130-400) x1000/uL 179 MPV (8.0-11.0) fL 10.9 Immature Gran % 0.5 Neutrophils % 62.0 Lymphocytes % 28.5 Monocytes % 5.8 Eosinophils % 2.7 Basophils % 0.5 Absolute Neutrophils (1.2-6.7) k/cumm 3.84 Absolute Lymphocytes (1.2-3.4) k/cumm 1.77 Absolute Monocytes (0.11-0.7) k/cumm 0.36 Absolute Eosinophils (0.0-0.7) k/cumm 0.17 Absolute Basophils (0.0-0.2) k/cumm 0.03
--- NOTE | 2018-11-12 13:02 | DI.RAD_ITS ---
SYMPTOM/DIAGNOSIS: CHEST PAIN PA AND LATERAL CHEST: Comparison is made with 07/09/18. The heart is normal in size. The lungs are clear. The mediastinal structures and pleura appear intact. CONCLUSION: Normal chest.
[2018-11-12] MEDS: Ketorolac 30 MG/ML VIAL IVP (13:14)
[2018-11-12 13:15] LABS: ALT 206 U/L (12-78); AST 70 U/L (15-37); Albumin 4.3 g/dL (3.4-5.0); Alkaline Phosphatase 74 U/L (46-116); Anion Gap 11.3 mmol/L (3-11); BUN 15 mg/dL (7-18); Bilirubin, Total 0.4 mg/dL (0.2-1.0); CO2 25.7 mmol/L (21.0-32.0); CREATININE 0.97 mg/dL (0.70-1.30); Calcium 9.2 mg/dL (8.5-10.1); Chloride 101 mmol/L (98-107); Glucose 154 mg/dL (70-100); Lipase 136 U/L (73-393); Magnesium 2.1 mg/dL (1.8-2.4); Potassium 3.8 mmol/L (3.5-5.1); Sodium 138 mmol/L (136-145); Total Protein 7.9 g/dL (6.4-8.2)
[2018-11-12 13:16] LABS: Troponin I < 0.05 ng/mL (0.00-0.06)
[2018-11-12 15:41] LABS: Troponin I < 0.05 ng/mL (0.00-0.06)
[2018-11-12 15:47] LABS: D-Dimer 169 ng/mlFEU (<500)
--- NOTE | 2018-11-12 16:28 | NUR.NOTE ---
Nursing Note: While Conrado was here we talked about having a visit with a livestock judging coach for his ETOH use. He stated he is aware of the resources for his drinking problem but he is not ready yet. He states he will make contact when he feels ready. He expressed thanks for the concern and giving him an opportunity to talk about it.
== END 2018-11-12 16:07 | disposition home or self-care (01) ==
PROVIDERS: Emergency Provider Physician Assistant; PCP Nurse Practitioner Family
DX: R07.81 Pleurodynia (principal); I10 Essential (primary) hypertension; F10.10 Alcohol abuse, uncomplicated
CPT/HCPCS: 36415; 80053; 83690; 93005; 96374; 99285; 71046; 83735; 84484; 85025; 85379; 93010; J1885

== ENCOUNTER 2019-01-25 16:37 | Emergency (ER) | payer MEDICAID, SELFPAY ==
[2019-01-25 16:40] VITALS: BP 156/98; PULSE 86; RESP 16; TEMP 37.1; O2SAT 96
--- NOTE | 2019-01-25 17:00 | ED.GENADUL_ITS ---
Discharge Plan Disposition Patient Disposition: HOME Condition: Good Discharge Details Chief Complaint: Abd Prob Clinical Impression: Abdominal pain, Dilation of right ureter Primary Care Provider: Kimberly Stein ED Provider: Tasha Gallego Home Meds and New Rx's Prescriptions: Continued pantoprazole [Protonix] 40 mg tablet,delayed release (DR/EC) 40 mg PO DAILY Qty: 90 RF: 1 lisinopril 40 mg tablet 40 mg PO DAILY Qty: 90 RF: 3 fluticasone propionate 50 mcg/actuation spray,suspension 1 - 2 spray NS DAILY PRN (Reason: nasal congestion) Qty: 3 RF: 3 acetaminophen 500 MG tablet 500 mg PO PRN RF: 0 aspirin [Aspir-Low] 81 mg Tablet,Delayed Release (Dr/Ec) 81 mg PO DAILY RF: 0 Discharge Instructions Instructions: Kidney Stones (ED), Abdominal Pain (ED) Additional Instructions: Encourage hydration. You may use ibuprofen as needed for discomfort. Please follow-up with your primary care regarding the concern for possible kidney stone, elevated liver enzymes. Cut back on your alcohol intake. If you develop fever/chills, increased pain, nausea/vomiting or other new/worsening symptoms please seek care urgently once again. Stand Alone Forms: Work Release Referrals: Kimberly Stein NP [Primary Care Provider] - Discharge Data Discharge Date/Time-TO BE ENTERED AT DEPARTURE: 01/25/19 19:22 Medical Decision Making Patient is a 28-year-old male, accompanied by significant other, with chief complaint of right lower quadrant pain that began yesterday. Patient underwent an appendectomy on 09/09/2018. Procedure was completed without complications. He reports that intermittently since that time he has had some right lower quadrant pain, primarily secondary to movement or straining. States that typically this self resolves fairly quickly or with the aid of Tylenol. However, he reports that since yesterday the pain has been consistent and more severe than typical. Denies any nausea or vomiting. Denies any fevers or chills. Denies any known trauma. Patient does work heavy lifting. States that this occurred with simply turning to the right. Denies any change in bowel habits. No hematuria, pain does not radiate into his testicles. On exam, patient is resting comfortably. He does not have any peritoneal findings. He does have pain in the superior lateral aspect of the right lower quadrant. No pain over McBurney's point, negative Hilton sign. Exam is otherwise benign. Do not appreciate any palpable defect or evidence of incarceration. However, his history is most consistent with a possible i ncarcerated hernia and I feel that imaging and labs appropriate at this time. Discussed this plan with the patient who is in agreement. Labs reviewed. No leukocytosis. Normal electrolytes. His AST and ALT is slightly elevated at 95 and 195 respectively. Patient has had these elevated historically. Urine is unremarkable. CT reviewed by radiologist: ABDOMEN: Lung Bases: Normal where visualized. Liver: There is diffuse decreased attenuation of the liver consistent with fatty infiltration. No mass. The portal superior mesenteric and splenic veins are patent. Gallbladder and biliary tract: No radiodense calculus or dilation. Pancreas: Normal density, no abnormal calcifications or inflammatory process. Spleen: Normal. Kidneys: Normal size, contour and axis. No nephrolithiasis or ureterolithiasis is present. There is mild dilatation of the right renal collecting system this may represent a recently passed stone. No masses seen. Adrenal glands: No masses seen. Abdominal Aorta: Abdominal portion non-dilated. Lymph nodes: Unremarkable. PELVIS: Bladder: Symmetric distention, no gross wall thickening. Bowel: No obstruction or bowel wall thickening. There is no evidence of acute appendicitis. Peritoneal cavity: No ascites, collection or mesenteric inflammatory response. Bones: Within normal limits. Reproductive organs: Within normal limits. Impression: Mild dilatation of the right ureter. No ureteral stone is seen. This may represent a recently passed stone. Hepatic steatosis. No evidence of acute appendicitis. Discussed these findings with the patient. I did question him on the elevated liver enzymes, he was aware of these. He reports that he drinks 6 pack daily. I advised at this point, there is suspicion for him having passed a kidney stone. He is unaware of this. No known history of kidney stones. I encouraged that he hydrate with water. Advise close follow-up with primary care. Patient did not have any RBCs in his UA. He was given strict return precautions. Advise close follow-up with his primary care. We did discuss that he may have a hernia that was simply not incarcerated able to be viewed on today's CT scan. I did advise that he may need follow-up with general surgery and or further imaging to evaluate this further given his persistent symptoms. He was given work note at his request. He will contact primary care tomorrow. All his questions and concerns were addressed and he is in agreement with this plan. HPI General Mode of arrival: ambulatory . Date/Time Provider Initiated Documentation: 01/25/19 16:57 . Limitations to Documentation: no limitations . Information obtained by: patient, family and RN notes reviewed . History of Present Illness 28 year old M presents to the emergency department with the chi ef complaint of RLQ pain, with intensity rated at 2. Quality is described as aching, and is localized to the abdomen. Patient reports no radiation. Patient started experiencing this day(s) (1) and it has been constant. Immobilization improves symptom(s), Movement worsens symptoms . Patient notes no other symptoms.; denies chest pain, cough, fever/chills, loss of appetite, nausea/vomiting, rash and shortness of breath. Patient did receive the following treatments prior to arrival, none Related Data Home Medications Medication Instructions Recorded Confirmed acetaminophen 500 mg PO PRN 05/08/16 01/26/19 fluticasone propionate 50 1 - 2 spray NS DAILY PRN #3 unit 08/05/18 01/26/19 mcg/actuation nasal spray,suspension pantoprazole 40 mg tablet,delayed 40 mg PO DAILY #90 tab-cap 11/04/18 01/26/19 release lisinopril 40 mg tablet 40 mg PO DAILY #90 tab-cap 11/25/18 01/26/19 aspirin [Aspir-Low] 81 mg PO DAILY 01/25/19 01/26/19 Previous Rx's Medication Instructions Recorded fluticasone propionate 50 1 - 2 spray NS DAILY PRN #3 unit 08/05/18 mcg/actuation nasal spray,suspension pantoprazole 40 mg tablet,delayed 40 mg PO DAILY #90 tab-cap 11/04/18 release lisinopril 40 mg tablet 40 mg PO DAILY #90 tab-cap 11/25/18 Allergies Allergy/AdvReac Type Severity Reaction Status Date / Time Opioids - Morphine Analogues AdvReac Mild tightness Verified 01/26/19 13:12 in neck muscles Sulfa (Sulfonamide AdvReac Unknown Verified 01/26/19 13:12 Antibiotics) General Stated Complaint: Abd Prob NICHOLAS: 3 Review of Systems Constitutional Constitutional: Reports as per HPI, Denies chills, Denies fatigue, Denies fever(s) and Denies headache(s) ENT Ears, Nose, Mouth, and Throat: Denies headache(s) Cardiovascular Cardiovascular: Reports as per HPI, Denies chest pain and Denies dyspnea Respiratory Respiratory: Reports as per HPI, Denies cough and Denies dyspnea Gastrointestinal Gastrointestinal: Reports as per HPI Genitourinary Genitourinary: Denies system reviewed and no additional complaints, except as docu (patient denies any change in urinary habits) Musculoskeletal Musculoskeletal: Reports as per HPI and Denies back pain Integumentary/Breasts Skin/Breast: Reports as per HPI and Denies rash Neurologic Neurologic: Reports as per HPI and Denies headache(s) Endocrine Endocrine: Denies fatigue [facility] Medical History (Updated 01/26/19 @ 15:22 by Chyna Jurado DO) Anxiety (Chronic) Appendicitis (Resolved) Chronic rhinosinusitis (Chronic) Crushing injury of left thumb (Inactive 01/24/11) Fx, no surgery Dysfunction of both eustachian tubes (Acute 12/22/16) Essential hypertension (Chronic 05/08/16) GERD (gastroesophageal reflux disease) (Chronic) Heavy alcohol consumption (Chronic) Hyperlipidemia (Acute 07/30/16) JAIRO (obstructive sleep apnea) (Chronic) Tobacco use disorder (Inactive) QUIT 06/2018 Surgical History (Updated 01/26/19 @ 15:22 by Chyna Jurado DO) Adenoidectomy (Inactive 01/03/08) Bilateral Myringotomy w/Insertion of Vinicius Tubes (Inactive 01/03/08) fx distal phalanx left thumb (Inactive 01/24/11) S/P appendectomy (Acute 09/10/18) Social History Smoking/Tobacco Use Status: Former Tobacco Use Alcohol Intake: current Alcohol Intake frequency: 3 or more drinks per day Alcohol type: beer Drug use: Occasionally Substance use type: marijuana Caregiver/Support person: No Household members: significant other Number of Children: 2 Pets and animals: Yes Pets and animals: dog(s) Sexually active: Yes Current gender identity: male What type of physical activity do you participate in: none Seatbelt use: never Helmet use: Yes Drive intox or ride w/intox transport truck driver: No Water heater temp set <120 deg: Yes Working smoke detector in home: Yes Fire extinguisher in home: Yes Carbon monox detector in home: Yes Firearms in home: Yes Firearms unloaded and locked: Yes Do you feel safe at home: Yes Do you feel safe in your relationship?: Yes Exam Const General: cooperative, healthy appearing, comfortable, no acute distress and well developed Nutritional Appearance: average body habitus and well nourished Orientation: alert and awake [facility] Head: normal to inspection Mouth: moist mucous membranes Resp Effort & Inspection: normal respiratory effort, able to speak in complete sentences and no respiratory distress Auscultation: clear to auscultation bilaterally, no rales, no rhonchi and no wheezes Cardio Rate: regular rate Rhythm: regular rhythm Heart Sounds: S1 normal and S2 normal GI Inspection: normal to inspection, no abdominal wall ecchymosis, no edema and non-distended Palpation: soft, no hepatosplenomegaly, no aortic enlargement, no guarding, no hernias, no masses, not rigid, tender in the RLQ (lateral and superior in the quadrant); not at McBurney's point, not periumbilically and Hilton's sign negative and No ascites Percussion: normal to percussion Auscultation: normal bowel sounds Back/Spine/Pelvis Back: no CVA tenderness Skin General skin exam: no rashes or lesions noted Trauma: no lacerations or abrasions Neuro General: alert and awake Cognition: normal cognition Speech: speech normal Gait: normal gait Psych Appearance: grossly normal and well kempt Mental Status: mental status grossly normal Speech and Movement: speech and movement normal Course Vital Signs Vital signs: Vital Signs Temperature 37.1 C 01/25/19 16:40 Pulse 86 01/25/19 16:40 Respiratory Rate 16 01/25/19 16:40 Blood Pressure 156/98 H 01/25/19 16:40 Pulse Oximetry 96 01/25/19 16:40 Temperature 37.1 C 01/25/19 16:40 Temperature Source Skin 01/25/19 16:40 Pulse 86 01/25/19 16:40 Respiratory Rate 16 01/25/19 16:40 Respiratory Effort Non-Labored 01/25/19 16:45 Blood Pressure 156/98 H 01/25/19 16:40 Blood Pressure Position Sitting 01/25/19 16:40 Pulse Oximetry 96 01/25/19 16:40 Oxygen Delivery Method Room Air 01/25/19 16:40 Oxygen Flow Rate 0 01/25/19 16:40 Pain Level 2 01/25/19 16:40
--- NOTE | 2019-01-25 17:14 | DI.CT_ITS ---
EXAM: CT ABDOMEN PELVIS W CLINICAL HISTORY: RLQ pain. TECHNIQUE: Imaging Protocol: Axial computed tomography images with coronal and sagittal reformatted images were created and reviewed CONTRAST MATERIAL: Intravenous: Omnipaque 350 Contrast volume:100 mL contrast route:IV - Oral: No COMPARISON: CT ABDOMEN PELVIS W from 09/08/2018 FINDINGS: ABDOMEN: Lung Bases: Normal where visualized. Liver: There is diffuse decreased attenuation of the liver consistent with fatty infiltration. No ma ss. The portal superior mesenteric and splenic veins are patent. Gallbladder and biliary tract: No radiodense calculus or dilation. Pancreas: Normal density, no abnormal calcifications or inflammatory process. Spleen: Normal. Kidneys: Normal size, contour and axis. No nephrolithiasis or ureterolithiasis is present. There is mild dilatation of the right renal collecting system this may represent a recently passed stone. No masses seen. Adrenal glands: No masses seen. Abdominal Aorta: Abdominal portion non-dilated. Lymph nodes: Unremarkable. PELVIS: Bladder: Symmetric distention, no gross wall thickening. Bowel: No obstruction or bowel wall thickening. There is no evidence of acute appendicitis. Peritoneal cavity: No ascites, collection or mesenteric inflammatory response. Bones: Within normal limits. Reproductive organs: Within normal limits. Impression: Mild dilatation of the right ureter. No ureteral stone is seen. This may represent a recently passe d stone. Hepatic steatosis. No evidence of acute appendicitis. DATA REPOSITORY: All CT scans at this facility are submitted to the National Radiology Data Registry (NRDR) Dose Index Registry (DIR) with the [employer] (ACR). RADIATION OPTIMIZATION: All CT scans at this facility use at least one of these dose optimization te chniques: automated exposure control; mA and/or kV adjustment per patient size (includes targeted exa ms where dose is matched to clinical indication); or iterative reconstruction.
[2019-01-25] MEDS: Lactated Ringers 1,000 ML 1000 ML IV (17:15)
[2019-01-25 17:26] LABS: Abs Immature Grans 0.05 k/cumm (0.0-0.09); Absolute Basophil Count 0.03 k/cumm (0.0-0.2); Absolute Lymphocyte Count 2.09 k/cumm (1.2-3.4); Absolute Neutrophil Count 3.68 k/cumm (1.2-6.7); Basophils % 0.5; Eosinophils % 3.1; HCT 45.6 % (40.0-50.0); HGB 15.9 g/dL (13.5-17.5); Immature Grans % 0.8; Lymphocytes % 31.9; Mean Corp. HGB Concentration 34.9 g/dL (32.0-36.0); Mean Corpuscular Hemoglobin 30.5 pg (27.0-33.0); Mean Corpuscular Volume 87.5 fL (80-95); Monocytes % 7.6; Neutrophils % 56.1; Platelet Count 182 x1000/uL (130-400); RBC 5.21 m/cumm (4.50-6.00); RBC Distribution Width 12.7 % (11.8-14.1); White Blood Cell Count 6.55 k/cumm (4.4-10.8)
[2019-01-25 17:29] LABS: Bilirubin Negative (Negative); Blood Negative (Negative); Clarity Clear (Clear); Glucose Negative (Negative); Ketones Negative (Negative); Leukocyte Esterase Negative (Negative); Nitrite Negative (Negative); Urobilinogen 0.2 EU/dL (Up TO 0.2)
[2019-01-25 17:40] LABS: ALT 195 U/L (16-63); Albumin 4.3 g/dL (3.4-5.0); Alkaline Phosphatase 78 U/L (46-116); Anion Gap 10.7 mmol/L (3-11); BUN 17 mg/dL (7-18); Bilirubin, Total 0.3 mg/dL (0.2-1.0); CO2 25.3 mmol/L (21.0-32.0); CREATININE 0.83 mg/dL (0.70-1.30); Calcium 9.1 mg/dL (8.5-10.1); Chloride 100 mmol/L (98-107); Glucose 102 mg/dL (70-100); Potassium 4.3 mmol/L (3.5-5.1); Sodium 136 mmol/L (136-145)
[2019-01-25] MEDS: Omnipaque 350 MG/ML 100 ML BTL IJ (17:46)
[2019-01-25 18:14] LABS: AST 95 U/L (15-37)
[2019-01-25 19:09] VITALS: BP 146/64; PULSE 74; RESP 18; TEMP 36.8; O2SAT 97
== END 2019-01-25 19:22 | disposition home or self-care (01) ==
PROVIDERS: Emergency Provider Physician Assistant; PCP Nurse Practitioner Family
DX: R10.9 Unspecified abdominal pain (principal); N28.82 Megaloureter
CPT/HCPCS: 36415; 80053; 96360; 99285; 74177; 81003; 85025; 99284; J3490

== ENCOUNTER 2019-02-10 00:33 | Outpatient (CLI) | payer MEDICAID, SELFPAY ==
--- NOTE | 2019-02-10 06:19 | DI.US_ITS ---
EXAM: US ABDOMEN CLINICAL HISTORY: RUQ ABD PAIN,R10.11,? HERNIA, ELEVATED LFT'S, GERD TECHNIQUE: Ultrasound performed using standard protocol. COMPARISON: CT ABDOMEN PELVIS W from 01/25/2019 FINDINGS: The liver shows increased echogenicity and decreased through transmission consistent with fatty infil tration. There is mild liver enlargement. No focal liver lesions or biliary dilatation is seen. Ga llbladder is unremarkable, without evidence of stones or wall thickening. No ascites is seen. Kidne ys are normal in size and show normal parenchymal thickness. No hydronephrosis is identified. No st ones are visible. The area of the patient's pain of the right lower quadrant was scanned. No hernia is demonstrated. IMPRESSION: Fatty infiltration of the liver. No biliary dilatation or gallbladder abnormality. No hernia is fer ntified.
== END 2019-02-10 00:53 ==
PROVIDERS: PCP Nurse Practitioner Family; Visit Provider Student in an Organized Health Care Education/Training Program
DX: R10.11 Right upper quadrant pain (principal); K21.9 Gastro-esophageal reflux disease without esophagitis; K76.0 Fatty (change of) liver, not elsewhere classified; R79.89 Other specified abnormal findings of blood chemistry
CPT/HCPCS: 76700

== ENCOUNTER 2019-11-17 01:44 | Outpatient (CLI) | payer MEDICAID, SELFPAY ==
[2019-11-17 17:17] LABS: Hemoglobin A1C 6.1 % (3.8-5.6)
[2019-11-17 17:41] LABS: Iron 43 ug/dL (65-175); Total Iron Binding Capacity 358 ug/dL (250-450); Transferrin Sat 12 % (20-55)
[2019-11-17 17:54] LABS: Ferritin 238 ng/mL (26-388); GGT 164 U/L (15-85)
[2019-11-21 09:09] LABS: HBs Antibody, Quant 20.9 mIU/mL (See Note); Hepatitis B Surface Ab Positive (See Note)
[2019-11-21 09:22] LABS: Hepatitis B Surface Ag Negative (Negative)
[2019-11-21 10:23] LABS: Hepatitis C Ab w Rflx HCV PCR Negative (Negative)
[2019-11-21 11:03] LABS: Hep A Total Ab w Rflx IgM Negative (Negative)
== END 2019-11-17 02:04 ==
PROVIDERS: PCP Nurse Practitioner Family; Visit Provider Nurse Practitioner Family
DX: K76.0 Fatty (change of) liver, not elsewhere classified (principal); R79.89 Other specified abnormal findings of blood chemistry; R73.01 Impaired fasting glucose
CPT/HCPCS: 36415; 86706; 86709; 86803; 87340; 82728; 82977; 83036; 83540; 83550; 86704

== ENCOUNTER 2020-07-27 02:28 | Outpatient (CLI) | payer MEDICAID, SELFPAY ==
[2020-07-27 13:10] LABS: Abs Immature Grans 0.03 10^3/uL (0.0-0.06); Absolute Basophil Count 0.06 10^3/uL (0.0-0.2); Absolute Eosinophil Count 0.23 10^3/uL (0.0-0.7); Absolute Lymphocyte Count 2.19 10^3/uL (1.2-3.4); Absolute Monocyte Count 0.42 10^3/uL (0.1-0.8); Absolute Neutrophil Count 3.36 10^3/uL (1.2-6.7); Eosinophils % 3.7; HCT 47.1 % (40.0-50.0); HGB 15.6 g/dL (13.5-17.5); Immature Grans % 0.5; Lymphocytes % 34.8; MCH 30.1 pg (27.0-33.0); MCHC 33.1 % (32.0-36.0); MCV 90.8 fL (80-95); MPV 10.5 fL (8.0-11.0); Monocytes % 6.7; Neutrophils % 53.3; Nucleated RBC 0 %; Platelet Count 214 10^3/uL (130-400); RBC 5.19 10^6/uL (4.36-5.78); RDW 12.2 % (11.8-14.1); RDW-SD 40.6 fL; WBC 6.29 10^3/uL (4.4-10.8)
[2020-07-27 13:16] LABS: Prothrombin Time 9.9 sec (9.3-11.0)
[2020-07-27 14:44] LABS: ALT 209 U/L (16-63); AST 63 U/L (15-37); Albumin 4.3 g/dL (3.4-5.0); Alkaline Phosphatase 69 U/L (46-116); BUN 16 mg/dL (7-18); Bilirubin, Total 0.3 mg/dL (0.2-1.0); CREATININE 0.9 mg/dL (0.70-1.30); Calcium 9.4 mg/dL (8.5-10.1); Calculated LDL 182 mg/dL (<100); Chloride 102 mmol/L (98-107); Cholesterol 297 mg/dL (<200); Glucose 92 mg/dL (74-106); HDL Cholesterol 39 mg/dL (40-60); Potassium 3.9 mmol/L (3.5-5.1); Sodium 140 mmol/L (136-145); Total Protein 7.7 g/dL (6.4-8.2); Triglyceride 381 mg/dL (<150)
== END 2020-07-27 02:29 | disposition home or self-care (01) ==
LOC: LBO 02:28
PROVIDERS: PCP Nurse Practitioner Family; Visit Provider Nurse Practitioner Family
DX: I10 Essential (primary) hypertension (principal); E78.5 Hyperlipidemia, unspecified; K76.0 Fatty (change of) liver, not elsewhere classified; E66.09 Other obesity due to excess calories; Z68.33 Body mass index [BMI] 33.0-33.9, adult; Z13.1 Encounter for screening for diabetes mellitus
CPT/HCPCS: 36415; 80053; 80061; 83036; 85025; 85610

== ENCOUNTER 2021-01-18 12:35 | Emergency (ER) | payer MEDICAID, SELFPAY ==
[2021-01-18 12:47] VITALS: BP 150/97; PULSE 95; RESP 18; TEMP 36.6; O2SAT 99
--- NOTE | 2021-01-18 13:45 | DI.RAD_ITS ---
Exam(s) XR ELBOW RT COMPLETE EXAM: XR ELBOW RT COMPLETE CLINICAL HISTORY: right elbow pain, swelling. TECHNIQUE: 2D digital imaging was performed of the left elbow. Three images were obtained. AP, lat eral and oblique views were obtained. COMPARISON: No exams were available for comparison FINDINGS: BONES: No acute fracture is present. No bony destructive lesion is seen. JOINTS: The elbow is normally aligned. No joint effusion is seen. SOFT TISSUE: Normal. IMPRESSION: Unremarkable radiographs of the right elbow. DATA REPOSITORY: RADIATION DOSE DELIVERED:
--- NOTE | 2021-01-18 14:45 | ED.GENADUL_ITS ---
Discharge Plan Disposition Patient Disposition: HOME Condition: Good Discharge Details Clinical Impression: Septic arthritis of elbow Primary Care Provider: Kimberly Stein ED Provider: Chrystal Batista Home Meds and New Rx's Prescriptions: Continued lisinopril 40 mg tablet 40 mg PO DAILY Qty: 90 RF: 3 pantoprazole [Protonix] 40 mg tablet,delayed release (DR/EC) 40 mg PO DAILY Qty: 90 RF: 3 cetirizine 10 mg tablet 10 mg PO DAILY Qty: 90 RF: 3 cephalexin 500 mg capsule 500 mg PO QID Qty: 40 RF: 0 acetaminophen 500 MG tablet 500 mg PO PRN RF: 0 fluticasone propionate 50 mcg/actuation spray,suspension 1 - 2 spray NS DAILY PRN (Reason: nasal congestion) Qty: 3 RF: 3 aspirin [Aspir-Low] 81 mg Tablet,Delayed Release (Dr/Ec) 81 mg PO DAILY RF: 0 Discharge Instructions Additional Instructions: Wear the sling Continue to isolate as instructed Take your antibiotic, make sure you take this every 6 hours Warm compresses Should you develop worsening pain, please return to the emergency room, give the antibiotics approximately 48 hours to work Take Tylenol as needed for pain Your x-ray does not show any abnormality Discharge Data Discharge Date/Time-TO BE ENTERED AT DEPARTURE: 01/18/21 15:05 Medical Decision Making X-ray does not show acute abnormality per radiology interpretation in my review Placed in sling Has not failed outpatient antibiotics has only taken 2 doses Warm compresses recommended Afebrile and nontoxic, neurovascularly intact Recheck in 24 to 48 hours recommended Early return precautions discussed and patient expressed understanding Denies history of IV drug abuse or trauma will continue on antibiotics, Keflex Medical Records Medical records reviewed: Yes I reviewed the patient's medical records. Lab Data Lab results reviewed: Yes I reviewed the patient's lab results. HPI General Date/Time Provider Initiated Documentation: 01/18/21 13:59 . Limitations to Documentation: no limitations . Information obtained by: patient . HPI Narrative: This 30-year-old male presents with right elbow. The pain is been present for the past 2 days. He denies any chest pain, shortness of breath, fever, weakness. He states that he was stung by a bee and diagnosed with Covid on the same day Thursday. He does use his right arm repetitively. He started on antibiotics last evening, Keflex. He was ordered an x-ray which came have performed decided to check into the emergency room. Related Data Home Medications Medication Instructions Recorded Confirmed acetaminophen 500 mg PO PRN 05/08/16 01/18/21 aspirin [Aspir-Low] 81 mg PO DAILY 01/25/19 01/18/21 lisinopril 40 mg tablet 40 mg PO DAILY #90 tab-cap 11/18/19 01/18/21 pantoprazole 40 mg tablet,delayed 40 mg PO DAILY #90 tab-cap 02/17/20 01/18/21 release cetirizine 10 mg tablet 10 mg PO DAILY #90 tab-cap 05/18/20 01/18/21 fluticasone propionate 50 1 - 2 spray NS DAILY PRN #3 unit 01/16/21 01/18/21 mcg/actuation nasal spray,suspension cephalexin 500 mg capsule 500 mg PO QID #40 cap 01/17/21 01/18/21 Previous Rx's Medication Instructions Recorded lisinopril 40 mg tablet 40 mg PO DAILY #90 tab-cap 11/18/19 pantoprazole 40 mg tablet,delayed 40 mg PO DAILY #90 tab-cap 02/17/20 release cetirizine 10 mg tablet 10 mg PO DAILY #90 tab-cap 05/18/20 fluticasone propionate 50 1 - 2 spray NS DAILY PRN #3 unit 01/16/21 mcg/actuation nasal spray,suspension cephalexin 500 mg capsule 500 mg PO QID #40 cap 01/17/21 Allergies Allergy/AdvReac Type Severity Reaction Status Date / Time Opioids - Morphine Analogues AdvReac Mild tightness Verified 01/18/21 12:51 in neck muscles Sulfa (Sulfonamide AdvReac Unknown Verified 01/18/21 12:51 Antibiotics) General Stated Complaint: Cellulitis NICHOLAS: 3 Review of Systems All systems reviewed & are unremarkable except as noted in HPI and below [facility] Medical History (Updated 01/18/21 @ 14:39 by MICK Simpson) Anxiety Appendicitis Chronic rhinosinusitis Crushing injury of left thumb (01/24/11) Fx, no surgery Dysfunction of both eustachian tubes (12/22/16) Essential hypertension (05/08/16) GERD (gastroesophageal reflux disease) Heavy alcohol consumption Hepatic steatosis 01/2019 abd [place] Hyperlipidemia (07/30/16) IFG (impaired fasting glucose) Obesity JAIRO (obstructive sleep apnea) Tobacco use disorder QUIT 06/2018 Surgical History Adenoidectomy (01/03/08) Bilateral Myringotomy w/Insertion of Vinicius Tubes (01/03/08) fx distal phalanx left thumb (01/24/11) S/P appendectomy (09/10/18) Family History Mother Essential hypertension Father Substance abuse EtOH Grandfather , Throat CA Myocardial infarction Neoplasm Throat CA Grandmother Heart disease Maternal Aunt Mental disorder Bipolar disorder Maternal Uncle , ID at age 34. Myocardial infarction Social History Smoking/Tobacco Use Status: Former Tobacco Use Smoking risk assessment performed?: Yes Alcohol Intake: current Alcohol Intake frequency: 3 or more drinks per day Alcohol type: beer Drug use: Occasionally Substance use type: marijuana Caregiver/Support person: No Household members: significant other Number of Children: 2 Pets and animals: Yes Pets and animals: dog(s) Sexually active: Yes Current gender identity: male What type of physical activity do you participate in: none Seatbelt use: never Helmet use: Yes Drive intox or ride w/intox stake driver: No Water heater temp set <120 deg: Yes Working smoke detector in home: Yes Fire extinguisher in home: Yes Carbon monox detector in home: Yes Firearms in home: Yes Firearms unloaded and locked: Yes Do you feel safe at home: Yes Do you feel safe in your relationship?: Yes Exam Const General: cooperative, comfortable and no acute distress Chest Chest: normal inspection of the chest Resp Effort & Inspection: normal respiratory effort Cardio Rate: regular rate Rhythm: regular rhythm Skin Other: Erythema right arm Neuro General: patient alert and patient oriented x3 Sensory Exam: no sensory deficits noted Extrem Other: Redness surrounding right elbow, approximately 6 inch region, range of motion intact, neurovascularly intact, no crepitus Course Vital Signs Vital signs: Vital Signs Temperature 36.6 C 01/18/21 12:47 Pulse 95 H 01/18/21 12:47 Respiratory Rate 18 01/18/21 12:47 Blood Pressure 150/97 H 01/18/21 12:47 Pulse Oximetry 99 01/18/21 12:47 Temperature 36.6 C 01/18/21 12:47 Temperature Source Tympanic 01/18/21 12:47 Pulse 95 H 01/18/21 12:47 Respiratory Rate 18 01/18/21 12:47 Respiratory Effort Non-Labored 01/18/21 12:52 Blood Pressure 150/97 H 01/18/21 12:47 Blood Pressure Position Sitting 01/18/21 12:47 Pulse Oximetry 99 01/18/21 12:47 Oxygen Delivery Method Room Air 01/18/21 12:47 Oxygen Flow Rate 0 01/18/21 12:47 Pain Level 8 01/18/21 12:47
== END 2021-01-18 15:05 | disposition home or self-care (01) ==
PROVIDERS: Emergency Provider Physician Assistant; PCP Nurse Practitioner Family
DX: M00.821 Arthritis due to other bacteria, right elbow (principal); U07.1 COVID-19
CPT/HCPCS: 99283; 73080

== ENCOUNTER 2021-02-12 02:37 | Outpatient (CLI) | payer MEDICAID, SELFPAY ==
[2021-02-12 16:47] LABS: Abs Immature Grans 0.03 10^3/uL (0.0-0.06); Absolute Basophil Count 0.05 10^3/uL (0.0-0.2); Absolute Eosinophil Count 0.26 10^3/uL (0.0-0.7); Absolute Lymphocyte Count 1.86 10^3/uL (1.2-3.4); Absolute Monocyte Count 0.58 10^3/uL (0.1-0.8); Basophils % 0.8; HCT 43.3 % (40.0-50.0); HGB 14.4 g/dL (13.5-17.5); Immature Grans % 0.5; Lymphocytes % 28.7; MCH 29.6 pg (27.0-33.0); MCHC 33.3 % (32.0-36.0); MCV 89.1 fL (80-95); MPV 10.9 fL (8.0-11.0); Nucleated RBC 0 %; Platelet Count 172 10^3/uL (130-400); RBC 4.86 10^6/uL (4.36-5.78); RDW 12.5 % (11.8-14.1); WBC 6.48 10^3/uL (4.4-10.8)
[2021-02-12 17:24] LABS: ESR 3 mm/hr (0-15)
[2021-02-12 17:26] LABS: C-Reactive Protein 1.06 mg/dL (0.0-0.3); Uric Acid 7.2 mg/dL (3.5-7.2)
== END 2021-02-12 02:38 | disposition home or self-care (01) ==
LOC: LBO 02:37
PROVIDERS: PCP Nurse Practitioner Family; Visit Provider Nurse Practitioner Family
DX: M25.521 Pain in right elbow (principal); M10.9 Gout, unspecified
CPT/HCPCS: 36415; 85652; 84550; 85025; 86140

== ENCOUNTER 2021-08-09 02:19 | Outpatient (CLI) | payer MEDICAID, SELFPAY ==
[2021-08-09 15:44] LABS: ALT 89 U/L (16-63); AST 35 U/L (15-37); Albumin 4.1 g/dL (3.4-5.0); Alkaline Phosphatase 78 U/L (46-116); Anion Gap 9.5 mmol/L (3-11); BUN 18 mg/dL (7-18); Bilirubin, Total 0.2 mg/dL (0.2-1.0); CO2 28.5 mmol/L (21.0-32.0); Calcium 8.9 mg/dL (8.5-10.1); Calculated LDL 167 mg/dL (<100); Chloride 103 mmol/L (98-107); Cholesterol 276 mg/dL (<200); Glucose 101 mg/dL (74-106); HDL Cholesterol 36 mg/dL (40-60); Sodium 141 mmol/L (136-145); Total Protein 7.2 g/dL (6.4-8.2); Triglyceride 366 mg/dL (<150)
== END 2021-08-09 02:20 | disposition home or self-care (01) ==
LOC: LBO 02:19
PROVIDERS: PCP Nurse Practitioner Family; Visit Provider Family Medicine
DX: I10 Essential (primary) hypertension (principal); E78.5 Hyperlipidemia, unspecified
CPT/HCPCS: 36415; 80053; 80061

== ENCOUNTER 2022-03-28 09:01 | Emergency (ER) | payer MEDICAID, SELFPAY ==
[2022-03-28 09:04] VITALS: BP 157/70; PULSE 86; RESP 18; TEMP 36.6; O2SAT 98
[2022-03-28] MEDS: Fluorescein STRIPS 100/BOX 1 MG OP (09:19)
[2022-03-28] MEDS: Tetracaine 0.5% 4 ML BTL OP (09:19)
--- NOTE | 2022-03-28 09:33 | ED.GENADUL_ITS ---
Discharge Plan Disposition Patient Disposition: Home Condition: Stable Discharge Details Clinical Impression: Corneal abrasion Primary Care Provider: Marcial Crawford ED Provider: oMnty Buckner Home Meds and New Rx's Prescriptions: New ofloxacin 0.3 % drops See Rx Instructions .ROUTE .COMPLEX Qty: 5 0RF Rx Instructions: put 1-2 drps into affected eye every 2-4 h x 2 days, then 1-2 drps 4 times/day days 3-7 No Action fluticasone propionate 50 mcg/actuation spray,suspension 2 spray NS DAILY PRN (Reason: nasal congestion) Qty: 3 3RF acetaminophen 500 MG tablet 500 mg PO PRN pantoprazole [Protonix] 40 mg tablet,delayed release (DR/EC) 40 mg PO DAILY Qty: 90 3RF Rx Instructions: Take 40 mg once daily in the morning at least 30 minutes before first meal lisinopril 40 mg tablet 40 mg PO DAILY Qty: 90 3RF Discharge Instructions Instructions: Corneal Abrasion (ED) Additional Instructions: Please return to the emergency department for any worsening symptoms. Otherwise follow-up with your primary care physician. Medical Decision Making 31-year-old male presents with right eye irritation over the last day, slight tearing, slight injection of right conjunctiva, evident horizontal linear superficial corneal abrasion negative Kenny sign, OD 20/50 OS 20/25. No eviden ce of foreign body. Will be discharged on antibiotic drops. Lids everted and irrigated. The patient resting comfortably currently. Sign Out No HPI General Date/Time Provider Initiated Documentation: 03/28/22 09:06 . 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 Does not wear contacts. Related Data Home Medications Medication Instructions Recorded Confirmed acetaminophen 500 mg tablet 500 mg PO PRN 05/08/16 03/28/22 pantoprazole 40 mg tablet,delayed 40 mg PO DAILY #90 tab-caps 01/31/21 03/28/22 release (Protonix) fluticasone propionate 50 2 spray NS DAILY PRN nasal 08/07/21 03/28/22 mcg/actuation nasal congestion #3 units spray,suspension lisinopril 40 mg tablet 40 mg PO DAILY #90 tab-caps 03/19/22 03/28/22 ofloxacin 0.3 % eye drops See Rx Instructions ophthalmic 03/28/22 (eye) .COMPLEX #5 mL Previous Rx's Medication Instructions Recorded pantoprazole 40 mg tablet,delayed 40 mg PO DAILY #90 tab-caps 01/31/21 release (Protonix) fluticasone propionate 50 2 spray NS DAILY PRN nasal 08/07/21 mcg/actuation nasal congestion #3 units spray,suspension lisinopril 40 mg tablet 40 mg PO DAILY #90 tab-caps 03/19/22 ofloxacin 0.3 % eye drops See Rx Instructions ophthalmic 03/28/22 (eye) .COMPLEX #5 mL Allergies Allergy/AdvReac Type Severity Reaction Status Date / Time Opioids - Morphine Analogues AdvReac Mild tightness Verified 03/28/22 09:07 in neck muscles Sulfa (Sulfonamide AdvReac Unknown Verified 03/28/22 09:07 Antibiotics) General Stated Complaint: EyeProblem NICHOLAS: 4 Review of Systems Narrative: Review of Systems Constitutional: negative Eyes: negative ENT: Irritation Cardiovascular: negative Respiratory: negative Gastrointestinal: negative : negative Musculoskeletal: negative Skin: negative Neurologic: negative Psych: negative PFSH All Active Problems (Updated 03/28/22 @ 09:53 by Monty Buckner MD) Corneal abrasion (Acute) COVID-19 (Acute) about 01/2021-associated with upper respiratory symptoms and loss of taste- resolved Elevated liver function tests (Acute) Elevated transaminases., Likely cyst with heavy alcohol use. Also evidence of fatty liver on ultrasound IFG (impaired fasting glucose) (Acute) Obesity (Chronic) Anxiety (Chronic) Hyperlipidemia (Chronic 07/30/16) Chronic rhinosinusitis (Chronic) JAIRO (obstructive sleep apnea) (Chronic) GERD (gastroesophageal reflux disease) (Chronic) Heavy alcohol consumption (Chronic) 03/2021-3-6 beers per day Essential hypertension (Chronic 05/08/16) Medical History (Updated 03/28/22 @ 09:53 by Monty Buckner MD) Appendicitis Crushing injury of left thumb (01/24/11) Fx, no surgery Surgical History Adenoidectomy (01/03/08) Bilateral Myringotomy w/Insertion of Vinicius Tubes (01/03/08) fx distal phalanx left thumb (01/24/11) S/P appendectomy (09/10/18) Family History (Updated 03/04/21 @ 16:06 by Wandy Mercado) Mother Essential hypertension Breast cancer Diabetes Father Substance abuse EtOH Alcohol use disorder Cirrhosis of liver Diabetes Hypertension Hyperlipidemia Grandfather , Throat CA Myocardial infarction Neoplasm Throat CA Grandmother Heart disease Maternal Aunt Mental disorder Bipolar disorder Maternal Uncle , [place] at age 34. Myocardial infarction Sister No problems noted. Sister No problems noted. Sister No problems noted. Son No problems noted. Daughter No problems noted. Maternal Grandfather Alcohol use disorder Cancer of kidney Heart disease Hypertension AAA (abdominal aortic aneurysm) Paternal Grandfather , 72 Alcohol use disorder Throat cancer Diabetes Heart disease Maternal Grandmother Heart disease Hyperlipidemia Hypertension AAA (abdominal aortic aneurysm) Paternal Grandmother , 83 Hypertension Hyperlipidemia Heart disease Atrial fibrillation Parkinsons Alzheimer's dementia Social History (Updated 03/04/21 @ 16:01 by Wandy Mercado) Smoking/Tobacco Use Status: Current-Occasional Tobacco Type: cigarettes Tobacco: How many years used: 12 Smokeless tobacco user: chewing tobacco Quit status: considering quitting Second Hand Exposure: Yes Smoking risk assessment performed?: Yes Alcohol Intake: current Alcohol Intake frequency: a few times a week Alcohol type: beer and hard liquor Drug use: Daily Substance use type: marijuana Adopted: No Caregiver/Support person: Yes Foster care: No Household members: significant other and children Housing: house Number of Children: 2 Communication Needs: None Education Level: high school Do you need help understanding health information?: Often 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 Pets and animals: Yes Sexually active: Yes Do you think of yourself as: straight/heterosexual Current gender identity: male What is your relationship status?: living with partner How often do you talk on the phone with friends or family?: three or more times per week How often do you get together with friends or relatives?: three or more times per week Do you belong to any clubs or organized social groups?: no Panel score (0-1 are the most socially isolated patients): 2 Ivette/Gnosticism: No preference Special ivette needs: No Seatbelt use: never Helmet use: Yes Helmet use: always Drive intox or ride w/intox cdl a driver: No Water heater temp set <120 deg: Yes Working smoke detector in home: Yes Fire extinguisher in home: Yes Carbon monox detector in home: Yes Firearms in home: Yes Firearms unloaded and locked: Yes Do you feel safe at home: Yes Do you feel safe in your relationship?: Yes Exam Narrative Exam Narrative: Physical Examination General: alert, awake, cooperative, resting comfortably, no acute distress HEENT: normocephalic, atraumatic; PERRL, EOM intact, OD 20/50, OS 20/25, bilateral 20/20, 1 cm superficial linear horizontal corneal abrasion to mid cornea right eye, negative Kenny's, negative foreign body mild conjunctival injection of the right eye,; no nasal discharge; moist mucous membranes, oral and pharyngeal mucosa normal, tolerating secretions Neck: supple, trachea midline; full ROM Chest: normal to inspection Respiratory: normal respiratory effort, speaking in full sentences, clear to auscultation, no wheezing, rales or rhonchi Cardiac: regular rate, regular rhythm, S1S2 intact, no murmurs rubs or gallops GI: abdomen soft, non-tender, non-distended; no palpable mass or hepatosplenomegaly Skin: no lesions, rashes or trauma appreciated Neuro: AAOx3, normal speech, moving all extremities Psych: Appropriate mood and affect Course Vital Signs Vital signs: Vital Signs Temperature 36.6 C 03/28/22 09:04 Pulse 86 03/28/22 09:04 Respiratory Rate 18 03/28/22 09:04 Blood Pressure 157/70 H 03/28/22 09:04 Pulse Oximetry 98 03/28/22 09:04 Temperature 36.6 C 03/28/22 09:04 Temperature Source Temporal Artery Scan 03/28/22 09:04 Pulse 86 03/28/22 09:04 Respiratory Rate 18 03/28/22 09:04 Respiratory Effort Non-Labored 03/28/22 09:07 Blood Pressure 157/70 H 03/28/22 09:04 Blood Pressure Position Sitting 03/28/22 09:04 Pulse Oximetry 98 03/28/22 09:04 Oxygen Delivery Method Room Air 03/28/22 09:04 Oxygen Flow Rate 0 03/28/22 09:04 PAWSS Have you Been Recently Intoxicated or Drunk Within the Last 30 days?: No Have you Ever Experienced Previous Episodes of Alcohol Withdrawal?: No Have you ever Experienced Withdrawal Seizures?: No Have you ever Experienced Delirium Tremens(DT)s?: No Have you ever undergone Alcohol Rehabilitation Treatment (i.e, inpt ot outpatient treatment programs)?: No Have you ever Experienced Blackouts?: No Have you ever Combined Alcohol with other Downers within the last 90 days?: No Have you ever Combined Alcohol with any other Substance of Abuse during the last 90 days?: No Positive Blood Alcohol level on Presentation? [PCS.BAL]: No Evidence of Increased Autonomic Activity (i.e. HR>120, tremor, sweating, agitation, nausea)?: No Result: 0
== END 2022-03-28 10:08 | disposition home or self-care (01) ==
PROVIDERS: Emergency Provider Emergency Medicine; PCP Nurse Practitioner Family
DX: S05.01XA Injury of conjunctiva and corneal abrasion without foreign body, right eye, initial encounter (principal); X58.XXXA Exposure to other specified factors, initial encounter
CPT/HCPCS: 99283

== ENCOUNTER 2023-08-05 05:43 | Outpatient (CLI) | payer MEDICAID, SELFPAY ==
[2023-08-05 13:49] LABS: Hemoglobin A1C 5.8 % (<5.7)
[2023-08-05 14:05] LABS: ALT 51 U/L (16-63); AST 30 U/L (15-37); Albumin 4.2 g/dL (3.4-5.0); Alkaline Phosphatase 66 U/L (46-116); Anion Gap 7.4 mmol/L (3-11); BUN 17 mg/dL (7-18); Bilirubin, Total 0.3 mg/dL (0.2-1.0); CO2 28.6 mmol/L (21.0-32.0); CREATININE 0.9 mg/dL (0.70-1.30); Calcium 8.9 mg/dL (8.5-10.1); Calculated LDL 122 mg/dL (<100); Chloride 105 mmol/L (98-107); Cholesterol 198 mg/dL (<200); Estimated GFR 116.37 (mL/min/1.73m2); Glucose 96 mg/dL (74-106); HDL Cholesterol 41 mg/dL (40-60); Potassium 4.4 mmol/L (3.5-5.1); Sodium 141 mmol/L (136-145); Total Protein 7.5 g/dL (6.4-8.2); Triglyceride 175 mg/dL (<150)
== END 2023-08-05 05:44 | disposition home or self-care (01) ==
LOC: LBO 05:44
PROVIDERS: PCP Nurse Practitioner Family; Visit Provider Nurse Practitioner Family
DX: I10 Essential (primary) hypertension (principal); E78.5 Hyperlipidemia, unspecified; Z13.1 Encounter for screening for diabetes mellitus
CPT/HCPCS: 36415; 80053; 80061; 83036